=== PATIENT | female | born 1965 | race Caucasian/White ===

== ENCOUNTER 2019-11-21 00:03 | Inpatient (IN) ==
[2019-11-21] MEDS ORDERED: PIPERACILLIN/TAZOBACTAM 3,375 MG in SODIUM CHLORIDE 0.9% 100 ML IV STA (00:26)
[2019-11-21] MEDS ORDERED: SODIUM CHLORIDE 0.9% 500 ML IV STA (00:26)
[2019-11-21] MEDS ORDERED: ONDANSETRON 4 MG/2 ML VIAL IV STA (00:26)
[2019-11-21] MEDS ORDERED: PANTOPRAZOLE 40 MG VIAL IV STA (00:26)
[2019-11-21] MEDS ORDERED: HYDROmorphone 2 MG/1 ML VIAL IV STA (00:26)
[2019-11-21 01:17] LABS: Basophils % 0.7 % (0.0-0.8); Eosinophils # 0.1 10*3/uL (0.0-0.87); Eosinophils % 1.7 % (0.00-10.9); Hematocrit 39.6 VOL% (35.7-47.0); Immature Granulocytes % 0.2 %; Immature Granulocytes Absolute 0.01 #; Lymphocytes # 1.7 10*3/uL (1.4-4.0); Mean Corpuscular HGB Conc 32.8 GM/DL (32-36); Mean Corpuscular Volume 90.6 FL (87-102); Mean Platelet Volume 12.4 FL (9.6-12.0); Monocytes % 8.3 % (1.7-12.7); Neutrophils % 57.1 % (38.7-73.9); Platelet Count 109 T/CUMM (130-400); Red Blood Count 4.37 MC/CUMM (3.8-5.5); Red Cell Distribution Width 12.5 % (9.3-17.3); White Blood Count 5.4 T/CUMM (4-12)
[2019-11-21 01:40] LABS: Apearance,Urine CLEAR (Clear); Bilirubin,Urine Negative (Negative); Blood, Urine Negative (Negative); Glucose,Urine (UA) >=500 mg/dL (Negative); Ketones,Urine Negative (Negative); Mucus,Urine Occasional /LPF (Occasional); Nitrite,Urine Negative (Negative); Protein,Urine Negative; RBC,Urine 1 /HPF (0-4); Squamous Epithelial Cell,Urine Occasional /HPF (0-10); Urine Color Straw (Yellow); Urine Specific Gravity 1.035 (1.001-1.035); Urine Urobilinogen < 2.0 EU/DL (0.2-1.0); WBC,Urine <1 /HPF (0-6)
[2019-11-21 01:44] LABS: Alanine Aminotransferase 45 U/L (13-56); Alkaline Phosphatase 253 U/L (45-117); Amylase 81 U/L (25-115); Aspartate Amino Transferase 40 U/L (0-37); Bilirubin,Total < 0.39 MG/DL (0.2-1.0); Blood Urea Nitrogen 8 MG/DL (7-18); Calcium 9.2 MG/DL (8.5-10.1); Estimated Glom Filtration Rate 107 ML/MIN; Glucose 437 MG/DL (74-106); Total Protein 7.2 G/DL (6.4-8.3)
[2019-11-21] MEDS ORDERED: MAGNESIUM SULF RIDER 2 GM in PREMIX 1 EACH IV STA (01:50)
[2019-11-21] MEDS ORDERED: POTASSIUM CHLORIDE 20 MEQ TABLET PO STA (01:50)
[2019-11-21] MEDS ORDERED: INSULIN REGULAR 100 UNIT/ML SUBCUT STA (01:50)
[2019-11-21] MEDS ORDERED: hydrALAZINE 20 MG/1 ML VIAL IV STA (01:53)
[2019-11-21] MEDS ORDERED: DEXTROSE 50% 25 GM/50 ML VIAL IV PRN (02:49)
[2019-11-21] MEDS ORDERED: IBUPROFEN 200 MG TABLET PO PRN (02:49)
[2019-11-21] MEDS ORDERED: PROMETHAZINE 25 MG TABLET PO PRN (02:49)
[2019-11-21] MEDS ORDERED: ALBUTEROL/IPRATROPIUM 3 ML NEB RESP TX PRN (02:49)
[2019-11-21] MEDS ORDERED: ACETAMINOPHEN 325 MG TABLET PO PRN (02:49)
[2019-11-21] MEDS ORDERED: GLUCAGON 1 MG VIAL IM PRN (02:49)
[2019-11-21] MEDS ORDERED: ONDANSETRON 4 MG/2 ML VIAL IV PRN (02:49)
[2019-11-21] MEDS: SODIUM CHLORIDE 0.9% 1,000 ML IV SCH ×2 (03:28→10:59)
[2019-11-21 05:53] LABS: Basophils % 0.5 % (0.0-0.8); Eosinophils # 0.1 10*3/uL (0.0-0.87); Eosinophils % 1.9 % (0.00-10.9); Hematocrit 38.3 VOL% (35.7-47.0); Hemoglobin 12.5 GM/DL (12.0-16.0); Immature Granulocytes % 0.2 %; Immature Granulocytes Absolute 0.01 #; Lymphocytes # 2.3 10*3/uL (1.4-4.0); Lymphocytes % 36.6 % (21.3-54.2); Mean Corpuscular HGB Conc 32.6 GM/DL (32-36); Mean Corpuscular Volume 91.4 FL (87-102); Mean Platelet Volume 12.2 FL (9.6-12.0); Neutrophils % 51.8 % (38.7-73.9); Platelet Count 111 T/CUMM (130-400); Red Blood Count 4.19 MC/CUMM (3.8-5.5); Red Cell Distribution Width 12.5 % (9.3-17.3); White Blood Count 6.2 T/CUMM (4-12)
[2019-11-21 06:14] LABS: Albumin 2.8 G/DL (3.4-5.0); Bilirubin,Total 1.6 MG/DL (0.2-1.0); Calcium 8.3 MG/DL (8.5-10.1); Osmolality,Calculated 286.1 MOS/KG (273-304); Total Protein 6.8 G/DL (6.4-8.3)
[2019-11-21] MEDS: INSULIN REGULAR 100 UNIT/ML SUBCUT SCH ×3 (06:17→18:04)
[2019-11-21] MEDS ORDERED: glipiZIDE 5 MG TABLET PO SCH (07:30)
[2019-11-21] MEDS ORDERED: ASPIRIN EC 81 MG TABLET PO SCH (09:00)
[2019-11-21] MEDS: PANTOPRAZOLE 40 MG TABLET PO SCH (10:55)
[2019-11-21] MEDS: PARoxetine 20 MG TABLET PO SCH (10:55)
[2019-11-21] MEDS ORDERED: NICOTINE 21 MG/24 HR PATCH TRANSDERM PRN (10:58)
[2019-11-21] MEDS: PIPERACILLIN/TAZOBACTAM 3,375 MG in SODIUM CHLORIDE 0.9% 100 ML IV SCH ×2 (11:03→17:48)
[2019-11-21] MEDS ORDERED: ENOXAPARIN 40 MG/0.4 ML SYRINGE SUBCUT SCH (21:00)
[2019-11-22] MEDS: PIPERACILLIN/TAZOBACTAM 3,375 MG in SODIUM CHLORIDE 0.9% 100 ML IV SCH ×3 (00:06→17:35)
[2019-11-22] MEDS: INSULIN REGULAR 100 UNIT/ML SUBCUT SCH ×4 (00:49→17:36)
[2019-11-22] MEDS: SODIUM CHLORIDE 0.9% 1,000 ML IV SCH ×4 (04:20→22:04)
[2019-11-22 05:52] LABS: Basophils % 0.5 % (0.0-0.8); Eosinophils # 0.1 10*3/uL (0.0-0.87); Eosinophils % 1.7 % (0.00-10.9); Hematocrit 37.8 VOL% (35.7-47.0); Hemoglobin 12.3 GM/DL (12.0-16.0); Immature Granulocytes % 0.3 %; Immature Granulocytes Absolute 0.02 #; Lymphocytes # 2.3 10*3/uL (1.4-4.0); Lymphocytes % 35.9 % (21.3-54.2); Mean Corpuscular HGB Conc 32.5 GM/DL (32-36); Mean Corpuscular Volume 92.2 FL (87-102); Mean Platelet Volume 12.4 FL (9.6-12.0); Monocytes % 9.1 % (1.7-12.7); Neutrophils % 52.5 % (38.7-73.9); Platelet Count 111 T/CUMM (130-400); Red Cell Distribution Width 12.9 % (9.3-17.3); White Blood Count 6.4 T/CUMM (4-12)
[2019-11-22 06:28] LABS: Albumin 2.7 G/DL (3.4-5.0); Bilirubin,Total 0.7 MG/DL (0.2-1.0); Calcium 8.6 MG/DL (8.5-10.1); Osmolality,Calculated 284.1 MOS/KG (273-304); Total Protein 6.4 G/DL (6.4-8.3)
[2019-11-22] MEDS ORDERED: LIDOCAINE 1%/EPI INJ 20 ML VIAL ONE (06:45)
[2019-11-22] MEDS ORDERED: BUPIVACAINE MPF 0.25% 30 ML VIAL ONE (06:45)
[2019-11-22] MEDS ORDERED: TISSUE ADHESIVE 1 EACH APPLICATOR TOP ONE (06:45)
[2019-11-22] MEDS: PANTOPRAZOLE 40 MG TABLET PO SCH (09:11)
[2019-11-22] MEDS: PARoxetine 20 MG TABLET PO SCH (09:11)
[2019-11-22] MEDS ORDERED: SUGAMMADEX 200 MG/2 ML VIAL IV ONE (09:23)
[2019-11-22] MEDS ORDERED: BUPIVACAINE LIPOSOMAL 20 ML/266 MG VIAL ONE (09:30)
[2019-11-22] MEDS ORDERED: ONDANSETRON 4 MG/2 ML VIAL IV PRN (10:06)
[2019-11-22] MEDS ORDERED: HYDROmorphone 2 MG/1 ML VIAL ONE (10:10)
[2019-11-22] MEDS ORDERED: ONDANSETRON 4 MG/2 ML VIAL ONE ×2 (10:10→10:28)
[2019-11-22] MEDS: HYDROmorphone 2 MG/1 ML VIAL IV PRN ×6 (10:12→20:29)
[2019-11-22] MEDS ORDERED: propofoL 200 MG/20 ML VIAL IV ONE (10:27)
[2019-11-22] MEDS ORDERED: DESFLURANE 1 UNIT/15 MINUTE INH ONE (10:27)
[2019-11-22] MEDS ORDERED: LIDOCAINE 2% 5 ML VIAL ONE (10:27)
[2019-11-22] MEDS ORDERED: GLYCOPYRROLATE 0.4 MG/2 ML VIAL ONE (10:28)
[2019-11-22] MEDS ORDERED: MIDAZOLAM 2 MG/2 ML VIAL ONE (10:28)
[2019-11-22] MEDS ORDERED: ACETAMINOPHEN 1,000 MG/100 ML VIAL IV ONE (10:28)
[2019-11-22] MEDS ORDERED: KETAMINE 500 MG/10 ML VIAL ONE (10:28)
[2019-11-22] MEDS ORDERED: KETOROLAC 30 MG/1 ML VIAL ONE (10:28)
[2019-11-22] MEDS ORDERED: fentaNYL 100 MCG/2 ML VIAL ONE (10:28)
[2019-11-22] MEDS ORDERED: LACTATED RINGERS 1,000 ML IV ONE (10:29)
[2019-11-22] MEDS ORDERED: PHENYLEPHRINE 1 MG/10 ML SYRINGE IV ONE (10:29)
[2019-11-22] MEDS ORDERED: ROCURONIUM 100 MG/10 ML VIAL IV ONE (10:29)
[2019-11-22] MEDS ORDERED: MEPERIDINE 25 MG/1 ML VIAL IV PRN (10:35)
[2019-11-22] MEDS ORDERED: hydrALAZINE 20 MG/1 ML VIAL ONE (10:48)
[2019-11-22] MEDS: hydrALAZINE 20 MG/1 ML VIAL IV PRN (10:49)
[2019-11-22] MEDS: INSULIN GLARGINE 100 UNIT/ML SUBCUT SCH (17:55)
[2019-11-22] MEDS ORDERED: SODIUM CHLORIDE 0.9% 500 ML IV ONE (23:42)
[2019-11-23 00:12] LABS: Hematocrit 37.7 VOL% (35.7-47.0); Hemoglobin 12.2 GM/DL (12.0-16.0)
[2019-11-23] MEDS: SODIUM CHLORIDE 0.9% 1,000 ML IV SCH ×5 (00:18→23:18)
[2019-11-23] MEDS: INSULIN REGULAR 100 UNIT/ML SUBCUT SCH ×4 (01:05→18:10)
[2019-11-23] MEDS: PIPERACILLIN/TAZOBACTAM 3,375 MG in SODIUM CHLORIDE 0.9% 100 ML IV SCH ×3 (01:35→18:17)
[2019-11-23] MEDS: HYDROmorphone 2 MG/1 ML VIAL IV PRN ×6 (01:35→20:44)
[2019-11-23] MEDS: PARoxetine 20 MG TABLET PO SCH (08:28)
[2019-11-23] MEDS: PANTOPRAZOLE 40 MG TABLET PO SCH (08:28)
[2019-11-23] MEDS: INSULIN GLARGINE 100 UNIT/ML SUBCUT SCH (08:28)
[2019-11-23 10:29] LABS: Basophils # 0.1 10*3/uL (0.0-0.2); Basophils % 0.4 % (0.0-0.8); Eosinophils # 0.1 10*3/uL (0.0-0.87); Eosinophils % 0.4 % (0.00-10.9); Hematocrit 40.7 VOL% (35.7-47.0); Hemoglobin 12.9 GM/DL (12.0-16.0); Immature Granulocytes % 0.7 %; Lymphocytes # 2.1 10*3/uL (1.4-4.0); Lymphocytes % 14.6 % (21.3-54.2); Mean Corpuscular HGB Conc 31.7 GM/DL (32-36); Mean Corpuscular Volume 95.3 FL (87-102); Mean Platelet Volume 12.6 FL (9.6-12.0); Monocytes % 8.8 % (1.7-12.7); Neutrophils % 75.1 % (38.7-73.9); Platelet Count 120 T/CUMM (130-400); Red Blood Count 4.27 MC/CUMM (3.8-5.5); Red Cell Distribution Width 13.2 % (9.3-17.3); White Blood Count 14.6 T/CUMM (4-12)
[2019-11-23 10:38] LABS: Albumin 2.9 G/DL (3.4-5.0); Bilirubin,Total 1.3 MG/DL (0.2-1.0); Calcium 9.1 MG/DL (8.5-10.1); Osmolality,Calculated 282.5 MOS/KG (273-304); Total Protein 7.3 G/DL (6.4-8.3)
[2019-11-23] MEDS: hydrALAZINE 20 MG/1 ML VIAL IV PRN (16:20)
[2019-11-23] MEDS ORDERED: FUROSEMIDE 40 MG/4 ML VIAL IV ONE (17:44)
[2019-11-24] MEDS: HYDROmorphone 2 MG/1 ML VIAL IV PRN ×7 (00:05→22:46)
[2019-11-24] MEDS: INSULIN REGULAR 100 UNIT/ML SUBCUT SCH ×4 (00:11→17:32)
[2019-11-24] MEDS: PIPERACILLIN/TAZOBACTAM 3,375 MG in SODIUM CHLORIDE 0.9% 100 ML IV SCH ×3 (01:00→17:32)
[2019-11-24] MEDS: hydrALAZINE 20 MG/1 ML VIAL IV PRN (04:19)
[2019-11-24 07:00] LABS: Basophils % 0.3 % (0.0-0.8); Eosinophils # 0.1 10*3/uL (0.0-0.87); Eosinophils % 0.4 % (0.00-10.9); Hematocrit 38.9 VOL% (35.7-47.0); Hemoglobin 12.5 GM/DL (12.0-16.0); Immature Granulocytes % 0.5 %; Immature Granulocytes Absolute 0.06 #; Lymphocytes # 1.6 10*3/uL (1.4-4.0); Lymphocytes % 12.3 % (21.3-54.2); Mean Corpuscular HGB Conc 32.1 GM/DL (32-36); Mean Corpuscular Volume 94.2 FL (87-102); Mean Platelet Volume 12.5 FL (9.6-12.0); Monocytes % 7.9 % (1.7-12.7); Neutrophils % 78.6 % (38.7-73.9); Platelet Count 126 T/CUMM (130-400); Red Blood Count 4.13 MC/CUMM (3.8-5.5); Red Cell Distribution Width 13.2 % (9.3-17.3); White Blood Count 12.6 T/CUMM (4-12)
[2019-11-24 07:21] LABS: Calcium 9.1 MG/DL (8.5-10.1); Osmolality,Calculated 281.5 MOS/KG (273-304)
[2019-11-24 08:12] LABS: Albumin 2.8 G/DL (3.4-5.0); Bilirubin,Direct 0.32 MG/DL (0.0-0.20); Bilirubin,Indirect 0.5 MG/DL (0.0-1.0); Bilirubin,Total 0.8 MG/DL (0.2-1.0); Total Protein 6.5 G/DL (6.4-8.3)
[2019-11-24] MEDS: hydroCHLOROthiazide 25 MG TABLET PO SCH (09:56)
[2019-11-24] MEDS: PANTOPRAZOLE 40 MG TABLET PO SCH (09:56)
[2019-11-24] MEDS: INSULIN GLARGINE 100 UNIT/ML SUBCUT SCH (09:56)
[2019-11-24] MEDS: PARoxetine 20 MG TABLET PO SCH (09:56)
[2019-11-24] MEDS: SODIUM CHLORIDE 0.9% 1,000 ML IV SCH (17:31)
[2019-11-25] MEDS: INSULIN REGULAR 100 UNIT/ML SUBCUT SCH ×5 (01:22→23:17)
[2019-11-25] MEDS: PIPERACILLIN/TAZOBACTAM 3,375 MG in SODIUM CHLORIDE 0.9% 100 ML IV SCH (01:48)
[2019-11-25] MEDS: HYDROmorphone 2 MG/1 ML VIAL IV PRN ×7 (02:02→21:42)
[2019-11-25] MEDS: SODIUM CHLORIDE 0.9% 1,000 ML IV SCH (02:04)
[2019-11-25 06:23] LABS: Basophils % 0.4 % (0.0-0.8); Eosinophils # 0.1 10*3/uL (0.0-0.87); Eosinophils % 1.4 % (0.00-10.9); Hematocrit 37.1 VOL% (35.7-47.0); Hemoglobin 12.2 GM/DL (12.0-16.0); Immature Granulocytes % 0.3 %; Immature Granulocytes Absolute 0.03 #; Lymphocytes # 1.9 10*3/uL (1.4-4.0); Lymphocytes % 19.4 % (21.3-54.2); Mean Corpuscular HGB Conc 32.9 GM/DL (32-36); Mean Corpuscular Volume 92.5 FL (87-102); Mean Platelet Volume 12.7 FL (9.6-12.0); Monocytes % 7.7 % (1.7-12.7); Neutrophils % 70.8 % (38.7-73.9); Platelet Count 110 T/CUMM (130-400); Red Blood Count 4.01 MC/CUMM (3.8-5.5); White Blood Count 9.7 T/CUMM (4-12)
[2019-11-25 06:40] LABS: Albumin 2.6 G/DL (3.4-5.0); Bilirubin,Direct 0.21 MG/DL (0.0-0.20); Bilirubin,Indirect 0.8 MG/DL (0.0-1.0); Total Protein 6.7 G/DL (6.4-8.3)
[2019-11-25 06:54] LABS: Calcium 8.8 MG/DL (8.5-10.1)
[2019-11-25] MEDS ORDERED: MAGNESIUM SULF RIDER 4 GM in PREMIX 1 EACH IV ONE (07:33)
[2019-11-25] MEDS ORDERED: MAGNESIUM HYDROXIDE SUSP 30 ML UDCUP PO ONE (07:57)
[2019-11-25] MEDS: PANTOPRAZOLE 40 MG TABLET PO SCH (09:58)
[2019-11-25] MEDS: hydroCHLOROthiazide 25 MG TABLET PO SCH (09:58)
[2019-11-25] MEDS: PARoxetine 20 MG TABLET PO SCH (09:58)
[2019-11-25] MEDS: INSULIN GLARGINE 100 UNIT/ML SUBCUT SCH (10:08)
[2019-11-26] MEDS: hydrALAZINE 20 MG/1 ML VIAL IV PRN (00:33)
[2019-11-26] MEDS: HYDROmorphone 2 MG/1 ML VIAL IV PRN ×5 (00:58→17:15)
[2019-11-26 04:43] LABS: Basophils % 0.3 % (0.0-0.8); Eosinophils # 0.1 10*3/uL (0.0-0.87); Eosinophils % 1.4 % (0.00-10.9); Hematocrit 37.8 VOL% (35.7-47.0); Hemoglobin 12.9 GM/DL (12.0-16.0); Immature Granulocytes % 0.2 %; Immature Granulocytes Absolute 0.02 #; Lymphocytes # 2.1 10*3/uL (1.4-4.0); Lymphocytes % 24.3 % (21.3-54.2); Mean Corpuscular HGB Conc 34.1 GM/DL (32-36); Mean Corpuscular Volume 88.7 FL (87-102); Mean Platelet Volume 12.2 FL (9.6-12.0); Monocytes % 8.3 % (1.7-12.7); Neutrophils % 65.5 % (38.7-73.9); Platelet Count 131 T/CUMM (130-400); Red Blood Count 4.26 MC/CUMM (3.8-5.5); White Blood Count 8.8 T/CUMM (4-12)
[2019-11-26 04:59] LABS: Calcium 8.6 MG/DL (8.5-10.1); Osmolality,Calculated 274.8 MOS/KG (273-304)
[2019-11-26 05:02] LABS: Albumin 2.4 G/DL (3.4-5.0); Bilirubin,Direct 0.2 MG/DL (0.0-0.20); Bilirubin,Indirect 0.4 MG/DL (0.0-1.0); Bilirubin,Total 0.6 MG/DL (0.2-1.0); Total Protein 6.1 G/DL (6.4-8.3)
[2019-11-26] MEDS: INSULIN REGULAR 100 UNIT/ML SUBCUT SCH ×3 (06:08→18:11)
[2019-11-26] MEDS ORDERED: MAGNESIUM HYDROXIDE SUSP 30 ML UDCUP PO ONE (08:46)
[2019-11-26] MEDS: amLODIPine 5 MG TABLET PO SCH (09:19)
[2019-11-26] MEDS: PARoxetine 20 MG TABLET PO SCH (09:19)
[2019-11-26] MEDS: PANTOPRAZOLE 40 MG TABLET PO SCH (09:19)
[2019-11-26] MEDS: POTASSIUM CHLORIDE RIDER 10 MEQ in PREMIX 1 EACH IV SCH ×7 (09:22→20:34)
[2019-11-26] MEDS: INSULIN GLARGINE 100 UNIT/ML SUBCUT SCH (09:22)
[2019-11-26 11:05] LABS: Hepatitis B Core IgM Quant 0.13 Index; Hepatitis B Surface Ag Quant 0.21 Index; Hepatitis B Surface Ag Result Negative (Negative); Hepatitis C Virus Ab Quant 0.17 Index; Hepatitis C Virus Ab Result Negative (Negative)
[2019-11-26 11:44] LABS: Ferritin 175.9 ng/ml (8-252)
[2019-11-26 11:47] LABS: INR 1.1; PT Patient Result 11.3 SECS (9.8-11.9)
[2019-11-26] MEDS: SODIUM CHLORIDE 0.9% 1,000 ML IV SCH (12:19)
[2019-11-27] MEDS: INSULIN REGULAR 100 UNIT/ML SUBCUT SCH ×2 (00:48→06:26)
[2019-11-27] MEDS: HYDROmorphone 2 MG/1 ML VIAL IV PRN ×2 (01:22→08:04)
[2019-11-27] MEDS: SODIUM CHLORIDE 0.9% 1,000 ML IV SCH ×2 (01:34→08:03)
[2019-11-27] MEDS: INSULIN GLARGINE 100 UNIT/ML SUBCUT SCH (08:04)
[2019-11-27] MEDS: amLODIPine 5 MG TABLET PO SCH (08:04)
[2019-11-27] MEDS: PARoxetine 20 MG TABLET PO SCH (08:04)
[2019-11-27] MEDS: PANTOPRAZOLE 40 MG TABLET PO SCH (08:04)
[2019-11-27] MEDS ORDERED: amLODIPine 10 MG TABLET PO SCH (08:11)
[2019-11-27 11:50] VITALS: BP 132/83
[2019-11-28 05:20] LABS: Antinuclear Ab, S 0.3 U
[2019-11-28 13:01] LABS: Smooth Muscle Antibody Negative (Negative)
[2019-11-28 13:45] LABS: Mitochondrial Antibody (M2) <0.1 U
== END 2019-11-27 12:27 | disposition home or self-care (01) | DRG 415 ==
LOC: N.ED 00:03 → INTOOBSV 02:01 → N.EDINP 02:01 → N.TELES 02:57
PROVIDERS: ADMIT Student in an Organized Health Care Education/Training Program; ATTEND Student in an Organized Health Care Education/Training Program
PROC: LAPCHOL (2019-11-22 07:52)

== ENCOUNTER 2022-02-03 00:19 | Inpatient (IN) ==
[2022-02-03] MEDS ORDERED: SILVER NITRATE STICK 1 EACH TOP ONE (01:18)
[2022-02-03 02:24] LABS: Basophils % 0.4 % (0.0-0.8); Eosinophils # 0.1 10*3/uL (0.0-0.87); Eosinophils % 1.3 % (0.00-10.9); Hematocrit 29.6 VOL% (35.7-47.0); Hemoglobin 10.1 GM/DL (12.0-16.0); Immature Granulocytes % 0.5 %; Immature Granulocytes Absolute 0.05 #; Lymphocytes # 0.7 10*3/uL (1.4-4.0); Lymphocytes % 7.2 % (21.3-54.2); Mean Corpuscular HGB Conc 34.1 GM/DL (32-36); Mean Corpuscular Volume 105.7 FL (87-102); Mean Platelet Volume 10.8 FL (9.6-12.0); Monocytes # 1.3 10*3/uL (0.11-0.8); Monocytes % 13.6 % (1.7-12.7); Platelet Count 109 T/CUMM (130-400); Red Cell Distribution Width 18.6 % (9.3-17.3); White Blood Count 9.5 T/CUMM (4-12)
[2022-02-03 02:38] LABS: INR 1.5; PT Patient Result 15.7 SECS (10.1-12.1); Partial Thromboplastin Time 31.9 SECS (23.7-32.9)
[2022-02-03 02:42] LABS: Alanine Aminotransferase 37 U/L (13-56); Albumin 2.6 G/DL (3.4-5.0); Alkaline Phosphatase 210 U/L (45-117); Amylase 173 U/L (25-115); Aspartate Amino Transferase 60 U/L (0-37); Blood Urea Nitrogen 34 MG/DL (7-18); Calcium 8.9 MG/DL (8.5-10.1); Carbon Dioxide 25 MMOL/L (21-32); Chloride 100 MMOL/L (98-107); Glucose 123 MG/DL (74-106); Osmolality,Calculated 278.1 MOS/KG (273-304); Potassium 3.9 MMOL/L (3.5-5.1); Sodium 135 MMOL/L (136-145); Total Protein 7.1 G/DL (6.4-8.2)
[2022-02-03] MEDS ORDERED: SODIUM CHLORIDE 0.9% 3,000 ML IV ONE (02:52)
[2022-02-03] MEDS ORDERED: LACTULOSE 320 GM/480 ML BOTTLE RECTAL ONE (03:07)
[2022-02-03] MEDS ORDERED: LACTULOSE 20 GM/30 ML UDCUP PO STA (03:09)
[2022-02-03 03:24] LABS: Arterial Base Excess iSTAT 1 MMOL/L (-2.5-2.5); Arterial Bicarbonate iSTAT 24.3 MMOL/L (20-26); Arterial O2 Saturation iSTAT 97 % (95-100); Arterial PCO2 iSTAT 33 MM HG (35-48); Arterial PO2 iSTAT 84 MM HG (80-95); Arterial Total CO2 iSTAT 25 MMO/L (23-27)
[2022-02-03] MEDS ORDERED: PIPERACILLIN/TAZOBACTAM 3,375 MG in SODIUM CHLORIDE 0.9% 100 ML IV SCH ×2 (03:30→09:00)
[2022-02-03 04:03] LABS: Bilirubin,Urine Negative (Negative); Blood, Urine Small mg/dL (Negative); Glucose,Urine (UA) Negative (Negative); Hyaline Casts,Urine 39 /LPF (0-3); Ketones,Urine Negative (Negative); Mucus,Urine Occasional /LPF (Occasional); Nitrite,Urine Negative (Negative); Protein,Urine Negative (Negative); RBC,Urine 13 /HPF (0-4); Squamous Epithelial Cell,Urine Occasional /HPF (0-10); Urine Appearance Slightly Hazy (Clear); Urine Color Amber (Yellow); Urine Specific Gravity 1.013 (1.001-1.035)
[2022-02-03 04:08] LABS: Barbiturates Screen,Urine Negative (Negative); Benzodiazepines Screen,Urine Negative (Negative); Cannabinoid Screen,Urine Negative (Negative); Opiate Screen,Urine Positive (Negative); Phencyclidine Screen,Urine Negative (Negative)
[2022-02-03] MEDS ORDERED: SODIUM CHLORIDE 0.9% 1,000 ML IV SCH (04:30)
[2022-02-03] MEDS ORDERED: hydrALAZINE 20 MG/1 ML VIAL IV PRN (04:43)
[2022-02-03] MEDS ORDERED: VANCOMYCIN INJ 750 MG in SODIUM CHLORIDE 0.9% 250 ML IV PRN (04:44)
[2022-02-03] MEDS ORDERED: VANCOMYCIN INJ 2,500 MG in SODIUM CHLORIDE 0.9% 500 ML IV ONE (06:00)
[2022-02-03] MEDS ORDERED: LACTULOSE 20 GM/30 ML UDCUP PO SCH (06:00)
[2022-02-03 06:04] LABS: Basophils % 0.3 % (0.0-0.8); Eosinophils # 0.1 10*3/uL (0.0-0.87); Eosinophils % 0.9 % (0.00-10.9); Hematocrit 29.6 VOL% (35.7-47.0); Hemoglobin 10.3 GM/DL (12.0-16.0); Immature Granulocytes % 0.5 %; Immature Granulocytes Absolute 0.04 #; Lymphocytes # 0.9 10*3/uL (1.4-4.0); Lymphocytes % 10.1 % (21.3-54.2); Mean Corpuscular HGB Conc 34.8 GM/DL (32-36); Mean Corpuscular Volume 103.9 FL (87-102); Mean Platelet Volume 10.6 FL (9.6-12.0); Monocytes # 1.1 10*3/uL (0.11-0.8); Monocytes % 12.6 % (1.7-12.7); Neutrophils % 75.6 % (38.7-73.9); Platelet Count 103 T/CUMM (130-400); Red Blood Count 2.85 MC/CUMM (3.8-5.5); Red Cell Distribution Width 18.5 % (9.3-17.3); White Blood Count 8.7 T/CUMM (4-12)
[2022-02-03 06:23] LABS: Hypochromia 2+; Microcytosis 2+
[2022-02-03 06:24] LABS: Platelet Estimate Decreased
[2022-02-03 06:27] LABS: Albumin 2.5 G/DL (3.4-5.0); Bilirubin,Total 4.3 MG/DL (0.20-1.00); Potassium 3.7 MMOL/L (3.5-5.1)
[2022-02-03] MEDS ORDERED: ALBUMIN 25% 25 GM/100 ML VIAL IV ONE (07:30)
[2022-02-03] MEDS ORDERED: TISSUE ADHESIVE 1 EACH APPLICATOR TOP ONE (07:59)
[2022-02-03] MEDS ORDERED: PANTOPRAZOLE 40 MG TABLET PO SCH (09:00)
[2022-02-03] MEDS ORDERED: VANCOMYCIN INJ 1,250 MG in SODIUM CHLORIDE 0.9% 250 ML IV PRN (09:48)
[2022-02-03] MEDS: PANTOPRAZOLE 40 MG VIAL IV SCH (10:07)
[2022-02-03] MEDS: LACTULOSE 20 GM/30 ML UDCUP PO SCH ×3 (10:08→22:13)
[2022-02-03] MEDS: AZITHROMYCIN INJ 500 MG in SODIUM CHLORIDE 0.9% 250 ML IV SCH (10:15)
[2022-02-03] MEDS: RIFAXIMIN 550 MG TABLET PO SCH (22:28)
[2022-02-04] MEDS: LACTULOSE 20 GM/30 ML UDCUP PO SCH ×4 (04:23→22:12)
[2022-02-04 05:01] LABS: Basophils % 0.4 % (0.0-0.8); Eosinophils % 0.6 % (0.00-10.9); Hematocrit 28.4 VOL% (35.7-47.0); Hemoglobin 9.8 GM/DL (12.0-16.0); Immature Granulocytes % 0.4 %; Immature Granulocytes Absolute 0.03 #; Lymphocytes # 0.9 10*3/uL (1.4-4.0); Lymphocytes % 12.7 % (21.3-54.2); Mean Corpuscular HGB Conc 34.5 GM/DL (32-36); Mean Corpuscular Volume 104.4 FL (87-102); Mean Platelet Volume 10.4 FL (9.6-12.0); Monocytes # 1.1 10*3/uL (0.11-0.8); Monocytes % 15.6 % (1.7-12.7); Neutrophils % 70.3 % (38.7-73.9); Platelet Count 97 T/CUMM (130-400); Red Blood Count 2.72 MC/CUMM (3.8-5.5); Red Cell Distribution Width 18.7 % (9.3-17.3); White Blood Count 7.3 T/CUMM (4-12)
[2022-02-04 05:15] LABS: Calcium 9.1 MG/DL (8.5-10.1); Osmolality,Calculated 283.5 MOS/KG (273-304); Potassium 3.7 MMOL/L (3.5-5.1)
[2022-02-04 05:42] LABS: Anisocytosis 1+; Band Neutrophils 1 % (0-10); Burr Cells Few; Lymphocytes 14 % (20-55); Macrocytosis 1+; Platelet Estimate Decreased; Target Cells Few; Total Cells Counted 100
[2022-02-04] MEDS: cefTRIAXone 2,000 MG in SODIUM CHLORIDE 0.9% 100 ML IV SCH (08:21)
[2022-02-04] MEDS: RIFAXIMIN 550 MG TABLET PO SCH ×2 (08:22→20:34)
[2022-02-04] MEDS: PANTOPRAZOLE 40 MG VIAL IV SCH (08:22)
[2022-02-04] MEDS: AZITHROMYCIN INJ 500 MG in SODIUM CHLORIDE 0.9% 250 ML IV SCH (12:22)
[2022-02-05] MEDS: LACTULOSE 20 GM/30 ML UDCUP PO SCH ×3 (04:53→20:51)
[2022-02-05 05:24] LABS: Basophils % 0.6 % (0.0-0.8); Eosinophils # 0.1 10*3/uL (0.0-0.87); Eosinophils % 1.4 % (0.00-10.9); Hematocrit 27.1 VOL% (35.7-47.0); Hemoglobin 9.3 GM/DL (12.0-16.0); Immature Granulocytes % 0.5 %; Immature Granulocytes Absolute 0.03 #; Lymphocytes % 16.1 % (21.3-54.2); Mean Corpuscular HGB Conc 34.3 GM/DL (32-36); Mean Corpuscular Volume 106.7 FL (87-102); Mean Platelet Volume 10.5 FL (9.6-12.0); Monocytes % 15.2 % (1.7-12.7); Neutrophils % 66.2 % (38.7-73.9); Platelet Count 93 T/CUMM (130-400); Red Blood Count 2.54 MC/CUMM (3.8-5.5); Red Cell Distribution Width 18.8 % (9.3-17.3); White Blood Count 6.4 T/CUMM (4-12)
[2022-02-05 05:45] LABS: Calcium 8.9 MG/DL (8.5-10.1); Osmolality,Calculated 283.4 MOS/KG (273-304); Potassium 3.3 MMOL/L (3.5-5.1)
[2022-02-05 05:47] LABS: Albumin 2.5 G/DL (3.4-5.0); Bilirubin,Total 4.8 MG/DL (0.20-1.00); Calcium 8.5 MG/DL (8.5-10.1); Osmolality,Calculated 285.3 MOS/KG (273-304); Potassium 3.4 MMOL/L (3.5-5.1); Total Protein 6.4 G/DL (6.4-8.2)
[2022-02-05] MEDS ORDERED: POTASSIUM CHLORIDE 20 MEQ TABLET PO ONE (05:55)
[2022-02-05 06:36] LABS: Platelet Estimate Decreased
[2022-02-05] MEDS: RIFAXIMIN 550 MG TABLET PO SCH ×2 (08:33→20:48)
[2022-02-05] MEDS: PANTOPRAZOLE 40 MG VIAL IV SCH (08:34)
[2022-02-05] MEDS: cefTRIAXone 2,000 MG in SODIUM CHLORIDE 0.9% 100 ML IV SCH (08:39)
[2022-02-05] MEDS ORDERED: SODIUM CHLORIDE 0.9% 250 ML IV ONE (09:54)
[2022-02-05] MEDS: AZITHROMYCIN INJ 500 MG in SODIUM CHLORIDE 0.9% 250 ML IV SCH (11:31)
[2022-02-05] MEDS ORDERED: MORPHINE 2 MG/1 ML SYRINGE IV ONE (23:15)
[2022-02-06 05:10] LABS: Basophils # 0.1 10*3/uL (0.0-0.2); Basophils % 0.8 % (0.0-0.8); Eosinophils # 0.2 10*3/uL (0.0-0.87); Eosinophils % 2.5 % (0.00-10.9); Hematocrit 29.6 VOL% (35.7-47.0); Hemoglobin 10.1 GM/DL (12.0-16.0); Immature Granulocytes % 0.3 %; Immature Granulocytes Absolute 0.02 #; Lymphocytes # 1.3 10*3/uL (1.4-4.0); Lymphocytes % 18.3 % (21.3-54.2); Mean Corpuscular HGB Conc 34.1 GM/DL (32-36); Mean Corpuscular Volume 108.4 FL (87-102); Mean Platelet Volume 10.5 FL (9.6-12.0); Monocytes % 14.6 % (1.7-12.7); Neutrophils % 63.5 % (38.7-73.9); Platelet Count 98 T/CUMM (130-400); Red Blood Count 2.73 MC/CUMM (3.8-5.5); Red Cell Distribution Width 18.4 % (9.3-17.3); White Blood Count 7.1 T/CUMM (4-12)
[2022-02-06 05:28] LABS: Albumin 2.6 G/DL (3.4-5.0); Bilirubin,Total 4.1 MG/DL (0.20-1.00); Calcium 8.6 MG/DL (8.5-10.1); Osmolality,Calculated 279.5 MOS/KG (273-304); Potassium 3.2 MMOL/L (3.5-5.1); Total Protein 7.2 G/DL (6.4-8.2)
[2022-02-06 05:31] LABS: % Iron Saturation 39.3 % (18-50)
[2022-02-06 05:56] LABS: Platelet Estimate Decreased
[2022-02-06] MEDS ORDERED: POTASSIUM CHLORIDE 20 MEQ TABLET PO ONE (06:31)
[2022-02-06] MEDS: PANTOPRAZOLE 40 MG VIAL IV SCH (09:33)
[2022-02-06] MEDS: RIFAXIMIN 550 MG TABLET PO SCH ×2 (09:34→20:25)
[2022-02-06] MEDS: LACTULOSE 20 GM/30 ML UDCUP PO SCH ×3 (09:34→20:25)
[2022-02-06] MEDS: cefTRIAXone 2,000 MG in SODIUM CHLORIDE 0.9% 100 ML IV SCH (09:35)
[2022-02-06] MEDS: AZITHROMYCIN INJ 500 MG in SODIUM CHLORIDE 0.9% 250 ML IV SCH (10:34)
[2022-02-06] MEDS: ONDANSETRON 4 MG/2 ML VIAL IV PRN ×3 (12:05→20:48)
[2022-02-06] MEDS ORDERED: CLORAZEPATE 3.75 MG TABLET PO ONE (19:21)
[2022-02-07] MEDS: ONDANSETRON 4 MG/2 ML VIAL IV PRN ×2 (02:23→10:10)
[2022-02-07 06:25] LABS: Basophils % 0.3 % (0.0-0.8); Eosinophils % 0.3 % (0.00-10.9); Hematocrit 27.3 VOL% (35.7-47.0); Hemoglobin 9.1 GM/DL (12.0-16.0); Immature Granulocytes % 1.2 %; Immature Granulocytes Absolute 0.14 #; Lymphocytes # 1.2 10*3/uL (1.4-4.0); Mean Corpuscular HGB Conc 33.3 GM/DL (32-36); Mean Corpuscular Volume 111.9 FL (87-102); Mean Platelet Volume 10.6 FL (9.6-12.0); Monocytes # 1.4 10*3/uL (0.11-0.8); Monocytes % 11.8 % (1.7-12.7); Neutrophils % 76.4 % (38.7-73.9); Platelet Count 104 T/CUMM (130-400); Red Blood Count 2.44 MC/CUMM (3.8-5.5); Red Cell Distribution Width 17.4 % (9.3-17.3)
[2022-02-07 06:38] LABS: INR 1.8; PT Patient Result 18.7 SECS (10.1-12.1)
[2022-02-07 06:42] LABS: Albumin 2.3 G/DL (3.4-5.0); Bilirubin,Total 4.9 MG/DL (0.20-1.00); Calcium 8.5 MG/DL (8.5-10.1); Osmolality,Calculated 282.5 MOS/KG (273-304); Potassium 4.4 MMOL/L (3.5-5.1); Total Protein 6.8 G/DL (6.4-8.2)
[2022-02-07 06:46] LABS: Platelet Estimate Decreased
[2022-02-07] MEDS: RIFAXIMIN 550 MG TABLET PO SCH (08:30)
[2022-02-07] MEDS: PANTOPRAZOLE 40 MG VIAL IV SCH (08:31)
[2022-02-07] MEDS ORDERED: LACTULOSE 20 GM/30 ML UDCUP PO SCH (09:00)
[2022-02-07] MEDS ORDERED: cefTRIAXone 2,000 MG in SODIUM CHLORIDE 0.9% 100 ML IV SCH (09:00)
[2022-02-07] MEDS ORDERED: PROPRANOLOL 10 MG TABLET PO SCH (09:00)
[2022-02-07] MEDS: AZITHROMYCIN INJ 500 MG in SODIUM CHLORIDE 0.9% 250 ML IV SCH (10:06)
[2022-02-07] MEDS ORDERED: FUROSEMIDE 40 MG/4 ML VIAL IV ONE (10:31)
[2022-02-07 11:56] VITALS: BP 129/81
== END 2022-02-07 14:30 | disposition home or self-care (01) | DRG 441 ==
LOC: N.ED 00:19 → SUATTDRO 04:13 → N.EDINP 04:13 → N.3E 07:42
PROVIDERS: ADMIT Internal Medicine; ATTEND Internal Medicine